=== PATIENT | male | born 1935 | race Caucasian/White ===

== ENCOUNTER 2021-03-04 10:51 | Emergency (ER) | payer MEDICARE, OTHER ==
[2021-03-04] MEDS ORDERED: Propofol 200 MG/20 ML SDV IVPUSH ONE (11:13)
--- NOTE | 2021-03-04 11:14 | EDM.PDOC ---
ED HPI GENERAL MEDICAL PROBLEM - General Chief Complaint: Cardiovascular Problem Stated Complaint: MEDICAL [facility] Time Seen by Provider: 03/04/21 11:01 Source of Information: Reports: Patient History Limitations: Reports: No Limitations - History of Present Illness INITIAL COMMENTS - FREE TEXT/NARRATIVE: 86 yo presents to the ER following 2 syncope episodes this AM. He had a normal evening last night. He is an insulin dependent diabetic and woke with a low blood sugar this AM. He resolved his Hypoglucemia with orange juice and return to sleep. This AM was a normal morning, then mid morning he felt light headed and had a syncopal episode he denies chest pain or SOB prior to or following the episode. He did feel "off" this morning, very fatigue. He then had another syncopal episode and EMS was called. Presented to the ER in a fib RVR. He states that this is the first time this has happened in his history. His is present and assist with HPI collection. - Related Data Allergies Allergy/AdvReac Type Severity Reaction Status Date / Time codeine Allergy Rash Verified 03/04/21 11:00 Home Meds: Home Meds Aspirin 81 mg PO DAILY 02/26/18 [History] Enalapril [Vasotec] 20 mg PO DAILY 02/26/18 [History] Levothyroxine [Synthroid] 50 mcg PO DAILY 02/26/18 [History] PARoxetine HCl [Paxil] 40 mg PO DAILY 02/26/18 [History] atorvaSTATin [Lipitor] 20 mg PO BEDTIME 02/26/18 [History] hydroCHLOROthiazide [Hydrochlorothiazide] 25 mg PO DAILY 02/26/18 [History] Insulin Aspart [NovoLOG] 10 unit SQ ASDIRECTED 03/04/21 [History] Insulin Degludec [Tresiba Flextouch U-100] 11 unit SQ DAILY 03/04/21 [History] Naproxen Sodium 220 mg PO DAILY 03/04/21 [History] Oxybutynin 2.5 mg PO BEDTIME 03/04/21 [History] Past Medical History HEENT History: Reports: Impaired Vision Cardiovascular History: Reports: High Cholesterol, Hypertension Musculoskeletal History: Reports: Back Pain, Chronic Endocrine/Metabolic History: Reports: Diabetes, Type II, Hypothyroidism - Infectious Disease History Infectious Disease History: Reports: Chicken Pox, Measles, Mumps, Pertussis (Whooping Cough) - Past Surgical History Head Surgeries/Procedures: Reports: None HEENT Surgical History: Reports: Cataract Surgery Cardiovascular Surgical History: Reports: None Endocrine Surgical History: Reports: None Musculoskeletal Surgical History: Reports: None Dermatological Surgical History: Reports: None Social & Family History - Family History Family Medical History: No Pertinent Family History - Tobacco Use Tobacco Use Status *Q: Never Tobacco User - Caffeine Use Caffeine Use: Reports: None, Coffee - Alcohol Use Days Per Week of Alcohol Use: 7 Number of Drinks Per Day: 5 Total Drinks Per Week: 35 Date of Last Drink: 03/03/21 - Recreational Drug Use Recreational Drug Use: No ED ROS GENERAL - Review of Systems Review Of Systems: See Below Constitutional: Reports: Fatigue. Denies: Fever, Chills Cardiovascular: Reports: Lightheadedness, Syncope. Denies: Chest Pain Endocrine: Reports: Fatigue GI/Abdominal: Denies: Abdominal Pain, Diarrhea, Nausea, Vomiting ED EXAM, GENERAL - Physical Exam Exam: See Below Exam Limited By: No Limitations General Appearance: Alert, WD/WN, No Apparent Distress Neck: Normal Inspection, Supple, Non-Tender, Full Range of Motion. No: Lymphadenopathy (R), Lymphadenopathy (L) Respiratory/Chest: No Respiratory Distress, Lungs Clear, Normal Breath Sounds. No: Crackles, Rhonchi, Wheezing Cardiovascular: Tachycardia, Irregularly Irregular GI/Abdominal: Soft, Non-Tender, No Mass Psychiatric: Normal Affect, Normal Mood Skin Exam: Warm, Dry, Intact ED CARDIOLOGY PROCEDURES - Cardioversion Time of Cardioversion: 11:40 Indication: Unstable, Atrial Fibrillation with RVR Patient Counseled: Yes Informed Consent Obtained: Yes Preparation: IV Access, Airway Management Equipment, Supplemental Oxygen, Monitor Pre-Procedure Sedation: Propofol Cardioversion Energy: Other (150 sync) Mode: Biphasic Successful: Yes Number of Attempts: 1 Patient Condition Post Cardioversion: Improved Post Cardioversion EKG Reviewed: Yes (NSR BBB rate 74) #1 Interpretation EKG Date: 03/04/21 Time: 11:41 Rhythm: NSR QRS: RBBB ST-T: Normal QT: Normal Course - Vital Signs Last Recorded V/S: Last Vital Signs Temp 35.9 C L 03/04/21 11:02 Pulse 120 H 03/04/21 11:02 Resp 18 03/04/21 11:02 BP 124/60 03/04/21 11:02 Pulse Ox 95 03/04/21 11:02 - Orders/Labs/Meds Orders: Active Orders 24 hr Category Date Time Status EKG Documentation Completion [RC] ASDIRECTED Care 03/04/21 11:47 Active Glucose [Blood Glucose Check, Bedside] [RC] ONETIME Care 03/04/21 13:26 Active GLUCOSE POC LAB TO COLLECT [POC] Routine Lab 03/04/21 13:36 Received EKG 12 Lead [EK] Routine Ther 03/04/21 11:47 Ordered Labs: Laboratory Tests 03/04/21 03/04/21 03/04/21 Range/Units 11:55 11:55 11:55 WBC 7.5 (4.5-11.0) K/uL RBC 4.54 (4.30-5.90) M/uL Hgb 12.4 (12.0-15.0) g/dL Hct 37.6 L (40.0-54.0) % MCV 83 (80-98) fL MCH 27 (27-31) pg MCHC 33 (32-36) % Plt Count 194 (150-400) K/uL Neut % (Auto) 85.5 H (36-66) % Lymph % (Auto) 7.6 L (24-44) % Rogers % (Auto) 6.6 H (2-6) % Eos % (Auto) 0.0 L (2-4) % Baso % (Auto) 0.3 (0-1) % Sodium 137 L (140-148) mmol/L Potassium 3.6 (3.6-5.2) mmol/L Chloride 98 L (100-108) mmol/L Carbon Dioxide 32 (21-32) mmol/L Anion Gap 10.6 (5.0-14.0) mmol/L BUN 19 H (7-18) mg/dL Creatinine 1.2 (0.8-1.3) mg/dL Est Cr Clr Drug Dosing TNP Estimated GFR (MDRD) 57 L (>60) Glucose 202 H (74-106) mg/dL POC Glucose (74-106) mg/dL Calcium 7.9 L (8.5-10.1) mg/dL Total Bilirubin 0.5 (0.2-1.0) mg/dL AST 22 (15-37) U/L ALT 25 (12-78) U/L Alkaline Phosphatase 120 H (46-116) U/L Troponin I 0.121 H* (0.000-0.056) ng/mL Total Protein 5.6 L (6.4-8.2) g/dL Albumin 2.4 L (3.4-5.0) g/dL Globulin 3.2 (2.3-3.5) g/dL Albumin/Globulin Ratio 0.8 L (1.2-2.2) TSH, Ultra Sensitive (0.358-3.740) uIU/mL Urine Color (YELLOW) Urine Appearance (CLEAR) Urine pH (5.0-8.0) Ur Specific Woodlyn (1.008-1.030) Urine Protein (NEGATIVE) mg/dL Urine Glucose (UA) (NEGATIVE) mg/dL Urine Ketones (NEGATIVE) mg/dL Urine Occult Blood (NEGATIVE) Urine Nitrite (NEGATIVE) Urine Bilirubin (NEGATIVE) Urine Urobilinogen (0.2-1.0) EU/dL Ur Leukocyte Esterase (NEGATIVE) Urine RBC (0-5) Urine WBC (0-5) Ur Epithelial Cells Amorphous Sediment Urine Bacteria Urine Mucus 03/04/21 03/04/21 03/04/21 Range/Units 11:55 12:39 13:30 WBC (4.5-11.0) K/uL RBC (4.30-5.90) M/uL Hgb (12.0-15.0) g/dL Hct (40.0-54.0) % MCV (80-98) fL MCH (27-31) pg MCHC (32-36) % Plt Count (150-400) K/uL Neut % (Auto) (36-66) % Lymph % (Auto) (24-44) % Rogers % (Auto) (2-6) % Eos % (Auto) (2-4) % Baso % (Auto) (0-1) % Sodium (140-148) mmol/L Potassium (3.6-5.2) mmol/L Chloride (100-108) mmol/L Carbon Dioxide (21-32) mmol/L Anion Gap (5.0-14.0) mmol/L BUN (7-18) mg/dL Creatinine (0.8-1.3) mg/dL Est Cr Clr Drug Dosing Estimated GFR (MDRD) (>60) Glucose (74-106) mg/dL POC Glucose 186 H (74-106) mg/dL Calcium (8.5-10.1) mg/dL Total Bilirubin (0.2-1.0) mg/dL AST (15-37) U/L ALT (12-78) U/L Alkaline Phosphatase (46-116) U/L Troponin I (0.000-0.056) ng/mL Total Protein (6.4-8.2) g/dL Albumin (3.4-5.0) g/dL Globulin (2.3-3.5) g/dL Albumin/Globulin Ratio (1.2-2.2) TSH, Ultra Sensitive 3.792 H (0.358-3.740) uIU/mL Urine Color Yellow (YELLOW) Urine Appearance Clear (CLEAR) Urine pH 7.0 (5.0-8.0) Ur Specific Woodlyn 1.015 (1.008-1.030) Urine Protein 30 H (NEGATIVE) mg/dL Urine Glucose (UA) 100 H (NEGATIVE) mg/dL Urine Ketones Trace H (NEGATIVE) mg/dL Urine Occult Blood Trace-intact H (NEGATIVE) Urine Nitrite Negative (NEGATIVE) Urine Bilirubin Negative (NEGATIVE) Urine Urobilinogen 1.0 (0.2-1.0) EU/dL Ur Leukocyte Esterase Negative (NEGATIVE) Urine RBC 0-5 (0-5) Urine WBC 0-5 (0-5) Ur Epithelial Cells Rare Amorphous Sediment Rare Urine Bacteria Not seen Urine Mucus Not seen Meds: Medications Discontinued Medications Generic Name Dose Route Start Last Admin Trade Name Freq PRN Reason Stop Dose Admin Propofol 150 mg 03/04/21 11:13 03/04/21 11:30 Propofol 200 Mg/20 Ml Sdv IVPUSH 03/04/21 11:14 80 mg ONETIME ONE Administration - Re-Assessments/Exams Free Text/Narrative Re-Assessment/Exam: 03/04/21 14:00 pt was evaluated on arrival to ER. He was found to be in a. fib RVR. This is the first know episode of a. fib. He felt fine yesterday and early this AM. 2 syncopal episodes. He was successfully cardioverted at 150 joules. he does hav e hx of hypothyroidism on supplementation. TSH was 3.6 so he is not hyperthyroid. afebrile. normal WBC, urine shows mild dehydration. trp is mildly elevated, this was drawn after the cardio version. post cardioversion EKG showed NSR at rate of 74, with a RBBB. pt remained in NSR for 2 hours after cardioversion was able to ambulate without difficulty Departure - Departure Time of Disposition: 14:13 Disposition: Home, Self-Care 01 Condition: Good Clinical Impression: Atrial fibrillation with RVR Instructions: Atrial Fibrillation, [id number] Referrals: Kyle Joshi MD [Primary Care Provider] - Forms: ED Department Discharge Additional Instructions: you experienced a abnormal heart rhythm today call atrial fibulation with a rapid ventricular response. You were then shocked and after that returned to a normal sinus rhythm. follow-up with your primary care provider this week return to the emergency room if you start to feel like you did this morning Sepsis Event Note (ED) - Evaluation Sepsis Screening Result: No Definite Risk - Focused Exam Vital Signs: Vital Signs Temp Pulse Resp BP Pulse Ox 03/04/21 11:02 35.9 C L 120 H 18 124/60 95 - My Orders Last 24 Hours: My Active Orders 03/04/21 11:47 EKG Documentation Completion [RC] ASDIRECTED EKG 12 Lead [EK] Routine 03/04/21 13:26 Glucose [Blood Glucose Check, Bedside] [RC] ONETIME 03/04/21 13:36 GLUCOSE POC LAB TO COLLECT [POC] Routine - Assessment/Plan Last 24 Hours: My Active Orders 03/04/21 11:47 EKG Documentation Completion [RC] ASDIRECTED EKG 12 Lead [EK] Routine 03/04/21 13:26 Glucose [Blood Glucose Check, Bedside] [RC] ONETIME 03/04/21 13:36 GLUCOSE POC LAB TO COLLECT [POC] Routine
== END 2021-03-04 14:45 | disposition home or self-care (01) ==
LOC: JP.ED 10:51
DX: I48.91 Unspecified atrial fibrillation (principal); E11.9 Type 2 diabetes mellitus without complications; E78.00 Pure hypercholesterolemia, unspecified; I10 Essential (primary) hypertension; E03.9 Hypothyroidism, unspecified; Z88.5 Allergy status to narcotic agent; Z79.4 Long term (current) use of insulin; Z79.82 Long term (current) use of aspirin; Z79.899 Other long term (current) drug therapy
CPT/HCPCS: 36415; 80053; 81001; 82947; 84443; 84484; 85025; 92960; 93005; 99285; J2704

== ENCOUNTER 2021-08-09 20:26 | Emergency (ER) | payer MEDICARE, OTHER ==
[2021-08-09] MEDS ORDERED: diphenhydrAMINE 25 MG Cap PO ONE (21:42)
== END 2021-08-09 23:27 | disposition home or self-care (01) ==
LOC: JP.ED 20:26
DX: S20.224A Contusion of middle back wall of thorax, initial encounter (principal); E78.00 Pure hypercholesterolemia, unspecified; I10 Essential (primary) hypertension; E11.9 Type 2 diabetes mellitus without complications; E03.9 Hypothyroidism, unspecified; E66.9 Obesity, unspecified; Z68.24 Body mass index [BMI] 24.0-24.9, adult; Z88.5 Allergy status to narcotic agent; Z79.82 Long term (current) use of aspirin; Z79.4 Long term (current) use of insulin; Z79.899 Other long term (current) drug therapy; W18.09XA Striking against other object with subsequent fall, initial encounter
CPT/HCPCS: 72072; 93005; 99284; A9270

== ENCOUNTER 2023-09-10 11:44 | Emergency (ER) | payer MEDICARE, OTHER ==
[2023-09-10] MEDS: 50% Dextrose in Water 50 ML Syringe IVPUSH ONE (12:06)
== END 2023-09-10 14:06 | disposition home or self-care (01) ==
LOC: JP.ED 11:44
DX: E11.649 Type 2 diabetes mellitus with hypoglycemia without coma (principal); I10 Essential (primary) hypertension; E03.9 Hypothyroidism, unspecified; E78.00 Pure hypercholesterolemia, unspecified; Z87.891 Personal history of nicotine dependence; Z79.4 Long term (current) use of insulin; Z79.82 Long term (current) use of aspirin; Z79.899 Other long term (current) drug therapy; Z88.5 Allergy status to narcotic agent
CPT/HCPCS: 82947; 99284